=== PATIENT | female | born 1995 | race Caucasian/White ===

== ENCOUNTER 2017-02-22 21:13 | Emergency (ER) | payer MEDICAID ==
[~2017-02-22] VITALS: Ht 157.5 cm; Wt 81.8 kg
[2017-02-22] MEDS ORDERED: IBUPROFEN 600 MG TABLET PO ONE (22:30)
[2017-02-22 22:44] VITALS: BP 121/86
== END 2017-02-22 22:58 | disposition home or self-care (01) ==
LOC: EMS 21:17
DX: S93.402A Sprain of unspecified ligament of left ankle, initial encounter (principal); X50.1XXA Overexertion from prolonged static or awkward postures, initial encounter; Y93.02 Activity, running; Y92.89 Other specified places as the place of occurrence of the external cause; Y99.8 Other external cause status
CPT/HCPCS: 99284

== ENCOUNTER 2018-05-11 20:22 | Emergency (ER) | payer MEDICAID, OTHER ==
[~2018-05-11] VITALS: Ht 157.5 cm; Wt 81.8 kg
[2018-05-11 20:27] VITALS: BP 160/77
[2018-05-11 21:03] LABS: RAPID GROUP A STREP NEGATIVE (NEGATIVE)
[2018-05-11 21:14] LABS: INFLUENZA TYPE A NEGATIVE FOR TYPE A (NEGATIVE); INFLUENZA TYPE B NEGATIVE FOR TYPE B (NEGATIVE)
[2018-05-11] MEDS ORDERED: BENZONATATE 100 MG CAPSULE PO ONE (21:15)
[2018-05-11] MEDS ORDERED: IBUPROFEN 400 MG TABLET PO ONE (21:15)
[2018-05-11] MEDS ORDERED: BENZOCAINE/MENTHOL LOZENGE PO ONE (21:15)
== END 2018-05-11 21:55 | disposition home or self-care (01) ==
LOC: EMS 20:23
DX: J06.9 Acute upper respiratory infection, unspecified (principal); R51 Headache
CPT/HCPCS: 87430; 87804